=== PATIENT | female | born 1985 | race Caucasian/White ===

== ENCOUNTER 2017-06-12 19:25 | Inpatient (IN) | payer BC ==
[2017-06-12] MEDS ORDERED: Lactated Ringers 1,000 ML IV ONE (19:45)
[2017-06-12] MEDS ORDERED: CLINDAMYCIN PHOSPHATE IV ONE (19:49)
[2017-06-12] MEDS ORDERED: Lidocaine 1% 20 ML MDV INJECT ONE (20:00)
[2017-06-12] MEDS ORDERED: Oxytocin 10 Units/1 ML SDV IV ONE (20:00)
[2017-06-12] MEDS: Ibuprofen 600 MG Tab PO PRN (21:00)
--- NOTE | 2017-06-12 21:55 | PCM.LDHP ---
L&D History of Present Illness - General Date of Service: 06/12/17 Admit Problem/Dx: Patient Status Order with Admit Dx/Problem 06/12/17 19:10 Admission Status [Patient Status] [ADT] Routine Admission Diagnosis/Problem Admission Diagnosis/Problem Normal in multigravida Source of Information: Patient History Limitations: Reports: No Limitations - History of Present Illness Introduction:: 32 you at post term with uterine contractions ,barely 45 min after her water broke. She is Group B strep + Timing/Duration: Reports: seconds:, minutes: (5), sudden onset Location, : Reports: Abdomen Quality: Reports: Stabbing Severity: Severe - Related Data Allergies/Adverse Reactions: Allergies Allergy/AdvReac Type Severity Reaction Status Date / Time Penicillins Allergy Hives Verified 07/13/13 04:18 Sulfa (Sulfonamide Allergy Swelling Verified 07/13/13 04:18 Antibiotics) Home Medications: Home Meds Norgestimate-Ethinyl Estradiol [Tri-Previfem Tablet] 1 tab PO DAILY 07/13/13 [ History] Omeprazole [Omeprazole] 20 mg PO DAILY 07/13/13 [History] Past Medical History - Past Health History Medical/Surgical History: Denies Medical/Surgical History Social & Family History - Alcohol Use Days Per Week of Alcohol Use: 0 - Recreational Drug Use Recreational Drug Use: No H&P Review of Systems - Review of Systems: Review Of Systems: ROS reveals no pertinent complaints other than HPI. L&D Exam - Exam Exam: See Below - OB Specific Contraction Intensity: Moderate Movement: Active Heart Tones: Present Heart Rate (FHR) Variability: Moderate (6-25 bmp) Presentation: Left Occiput Anterior (SARAHI) - Navarro Score Navarro Score Effacement: >80% Navarro Score Dilation: > 5 cm - Exam General: Alert, Oriented HEENT: PERRLA, Conjunctiva Clear, EACs Clear, EOMI, Hearing Intact, Mucosa Moist & Sharon, Nares Patent, Normal Nasal Septum, Posterior Pharynx Clear, TMs Clear Neck: Supple, Trachea Midline Lungs: Clear to Auscultation, Normal Respiratory Effort Cardiovascular: Regular Rate, Regular Rhythm GI/Abdominal Exam: Normal Bowel Sounds, Soft, Non-Tender, No Organomegaly, No Distention, No Abnormal Bruit, No Mass, Pelvis Stable Rectal Exam: Normal Exam, Normal Rectal Tone Genitourinary: Normal external exam, Normal bimanual exam, Normal speculum exam Back Exam: Normal Inspection, Full Range of Motion Extremities: Normal Inspection, Normal Range of Motion, Non-Tender, No Pedal Edema, Normal Capillary Refill Skin: Warm, Dry, Intact Neurological: Cranial Nerves Intact, Reflexes Equal Bilateral Psychiatric: Alert, Normal Affect, Normal Mood - Problem List (1) Term SNOMED Code(s): 94176038 ICD Code: Z34.80 - ENCOUNTER FOR SUPRVSN OF NORMAL , UNSP TRIMESTER Status: Acute Current Visit: Yes (2) PROM (premature rupture of membranes) SNOMED Code(s): 47000739 ICD Code: O42.90 - RENETTA ROM, 7TH0 BETW RUPT & ONST LABR, UNSP WEEKS OF GEST Status: Acute Current Visit: Yes Qualifiers: PROM onset of labor timing: onset of labor within 24 hours of rupture (3) Group B streptococcal carriage complicating SNOMED Code(s): 901407818732404 ICD Code: O99.820 - STREPTOCOCCUS B CARRIER STATE COMPLICATING Status: Acute Current Visit: Yes Problem List Initiated/Reviewed/Updated: Yes Orders Last 24hrs: Active Orders 24 hr Category Date Time Status Admission Status [Patient Status] [ADT] Routine ADT 06/12/17 19:10 Active Vital Signs [RC] PFP Care 06/12/17 21:06 Active Regular Diet [DIET] Diet 06/12/17 Breakfast Active CBC WITH AUTO DIFF [HEME] AM Lab 06/13/17 05:11 Ordered Ibuprofen [Motrin] Med 06/12/17 21:06 Active 600 mg PO Q4H PRN Ice Therapy [OM.PC] Per Unit Routine Oth 06/12/17 21:06 Ordered Perineal Care [OM.PC] Per Unit Routine Oth 06/12/17 21:06 Ordered Sitz Bath [OM.PC] Per Unit Routine Oth 06/12/17 21:06 Ordered Resuscitation Status Routine Resus Stat 06/12/17 21:06 Ordered Medication Orders Ibuprofen (Motrin) 600 mg PO Q4H PRN PRN Reason: Pain Assessment/Plan Comment:: Admit to L & D. Start Clindamycin for IAP. Observe.
--- NOTE | 2017-06-13 00:11 | DEL ---
DATE OF DELIVERY: 06/12/2017 PREOPERATIVE DIAGNOSES: 1. Premature rupture of membranes. 2. Group B strep status. POSTOPERATIVE DIAGNOSES: 1. Spontaneous vaginal delivery. 2. Second-degree perineal tear. BRIEF HISTORY AND HOSPITAL COURSE: This is a 32-year-old female who came in after premature rupture of membranes and onset of labor. She is group B positive and was due to be induced next week on Friday. She belongs to Dr. Nielsen. I was called in his absence. I attempted to call him, but he did not answer. I came into the room and confirmed that the patient was indeed ruptured and was complete with exception of a lip which I was able to push through. She started pushing and before that we had given 600 mg of IV clindamycin. She delivered around 2032 hours, live male with score of 9 and 9. There was cord delay and then clamped and cut. The placenta delivered shortly afterwards. It looked green. It was three vessel and intact. She had sustained a second-degree midline tear that was repaired expeditiously with 4-0 Vicryl. I gave her 10 units of intravenous oxytocin. Estimated blood loss 300 mL. The patient tolerated the procedure very well. She will be admitted to the Labor and Delivery for routine care. /[id number] PRESTON/KAREN
[2017-06-13] MEDS: Ibuprofen 600 MG Tab PO PRN ×3 (02:20→17:53)
--- NOTE | 2017-06-13 09:58 | PN ---
DATE SEEN: 06/13/2017 REASON FOR VISIT: care. HISTORY OF PRESENT ILLNESS: This is a 32-year-old, G2, P1, who delivered last night, 6 days post dates. This morning, she complained of pelvic pain and bleeding continues, but no fever has been reported. Denies any dysuria or frequency. No chest pain. No shortness of breath. PAST MEDICAL HISTORY: Anemia in . ALLERGIES: Penicillin and sulfa. PHYSICAL EXAMINATION: VITAL SIGNS: Blood pressure is normal. Pulse is normal. Temp 98.3. Oxygenation is normal on room air. Respiratory rate 16. ENT: Negative. CHEST: Clear. CARDIOVASCULAR: Normal. ABDOMEN: Soft and tender in the pelvic area with a firm uterus that is extremely tender. EXTREMITIES: No edema. LABORATORY DATA: White cell count was 14.1, hemoglobin 9.3 with a hematocrit of 29.0. IMPRESSION: 1. First day . 2. GBS colonization affecting . 3. Anemia due to blood loss. PLAN: My plan is to repeat a CBC, observe vital signs, and pain control with ibuprofen. I have thoroughly considered possibility of endometritis, but given no fever, no other symptoms or vital signs to suggest serious infection, the only sign she has is abdominal tenderness. I will wait and repeat a CBC in the morning. However, if she develops any fever or other symptoms, I am willing to start clindamycin and gentamicin right away. I did order UA to make she has no urinary tract infection. I restarted her home vitamins. /[id number] PRESTON/KAREN
[2017-06-13] MEDS: Prenatal Multivitamin with Calcium/Folic Acid/Fe Fumarate Cap PO SCH (11:20)
[2017-06-13] MEDS ORDERED: Acetaminophen/HYDROcodone 325-5 MG Tab PO PRN (11:22)
[2017-06-14] MEDS: Prenatal Multivitamin with Calcium/Folic Acid/Fe Fumarate Cap PO SCH (09:21)
--- NOTE | 2017-06-14 09:32 | PCM.PNPP ---
- General Info Date of Service: 06/14/17 Admission Dx/Problem (Free Text): Patient Status Order with Admit Dx/Problem 06/12/17 19:10 Admission Status [Patient Status] [ADT] Routine Admission Diagnosis/Problem Admission Diagnosis/Problem Normal in multigravida Functional Status: Reports: Pain Controlled, Tolerating Diet - Review of Systems General: Reports: No Symptoms HEENT: Reports: No Symptoms Pulmonary: Reports: No Symptoms Cardiovascular: Reports: No Symptoms Gastrointestinal: Reports: No Symptoms Genitourinary: Reports: No Symptoms Musculoskeletal: Reports: No Symptoms Skin: Reports: No Symptoms Neurological: Reports: No Symptoms Psychiatric: Reports: No Symptoms - General Info Date of Service: 06/14/17 - Patient Data Vital Signs - Most Recent: Last Vital Signs Temp 97.9 F 06/13/17 23:20 Pulse 86 06/13/17 23:20 Resp 18 06/13/17 23:20 BP 98/60 06/13/17 23:20 Pulse Ox 100 06/13/17 23:20 Weight - Most Recent: 63.503 kg Lab Results - Last 24 Hours: Laboratory Results - last 24 hr 06/13/17 06/13/17 06/14/17 Range/Units 10:50 12:40 06:38 WBC 12.4 H 9.3 (4.5-12.0) X10-3/uL RBC 3.79 3.55 (3.23-5.20) x10(6)uL Hgb 9.5 L 8.9 L (11.5-15.5) g/dL Hct 29.1 L 27.6 L (30.0-51.3) % MCV 76.7 L 77.9 L (80-96) fL MCH 25.1 L 25.0 L (27.7-33.6) pg MCHC 32.8 32.1 L (32.2-35.4) g/dL RDW 15.5 15.9 H (11.5-15.5) % Plt Count 292 292 (125-369) X10(3)uL MPV 8.4 8.7 (7.4-10.4) fL Add Manual Diff Yes Yes Neutrophils % (Manual) 79 72 (46-82) % Band Neutrophils % 1 (0-6) % Lymphocytes % (Manual) 15 26 (13-37) % Monocytes % (Manual) 5 2 L (4-12) % Microcytosis Few Few Urine Color Yellow (YELLOW) Urine Appearance Clear (CLEAR) Urine pH 7.0 H (5.0-6.5) Ur Specific [place] 1.010 (1.010-1.025) Urine Protein Negative (NEGATIVE) mg/dL Urine Glucose (UA) Normal (NEGATIVE) mg/dL Urine Ketones Negative (NEGATIVE) mg/dL Urine Occult Blood Large H (NEGATIVE) Urine Nitrite Negative (NEGATIVE) Urine Bilirubin Negative (NEGATIVE) Urine Urobilinogen Normal (NEGATIVE) mg/dL Ur Leukocyte Esterase Negative (NEGATIVE) Urine RBC >100 H (0) Urine WBC 0-5 (0) Ur Squamous Epith Cells Moderate H (NS,R,O) Urine Bacteria Few H (NS) Med Orders - Current: Current Medications Hydrocodone Bitart/Acetaminophen ([place] 325-5 Mg) 1 tab PO Q4H PRN PRN Reason: Pain Last Admin: 06/13/17 11:38 Dose: 1 tab Ibuprofen (Motrin) 600 mg PO Q4H PRN PRN Reason: Pain Last Admin: 06/13/17 17:53 Dose: 600 mg Multivit/Folic Acid/Iron (-U) 1 each PO DAILY JAVIER Last Admin: 06/14/17 09:21 Dose: 1 each Discontinued Medications Clindamycin Phosphate (Cleocin) Confirm Administered Dose 600 mg IV .STK-MED ONE Stop: 06/12/17 19:50 Last Admin: 06/12/17 19:56 Dose: Not Given Lactated Ringer's (Ringers, Lactated) 1,000 mls @ 999 mls/hr IV BOLUS ONE Stop: 06/12/17 20:45 Last Admin: 06/12/17 23:01 Dose: 999 mls/hr Clindamycin Phosphate 600 mg/ (Sodium Chloride) 54 mls @ 150 mls/hr IV ONETIME ONE Stop: 06/12/17 20:06 Last Admin: 06/12/17 20:00 Dose: 150 mls/hr Lidocaine HCl (Xylocaine 1%) 20 ml INJECT ONETIME ONE Stop: 06/12/17 20:01 Last Admin: 06/12/17 20:40 Dose: 20 ml Oxytocin (Pitocin) 10 unit IV ONETIME ONE Stop: 06/12/17 20:01 Last Admin: 06/12/17 20:40 Dose: 10 unit - Interaction Infant Disposition, : [place] to Nursery Feeding: Bottle Fed Support Person: - Recovery Exam Fundal Tone: Firm Fundal Level: 1 Fingerbreadths Below Umbilicus Fundal Placement: Midline Lochia Amount: Small Lochia Color: Rubra/Red Perineum Description: Redness, Ecchymotic Episiotomy/Laceration: Approximated Bladder Status: Voiding Urinary Elimination: Voided - Exam General: Alert, Oriented HEENT: Pupils Equal Neck: Supple Lungs: Clear to Auscultation, Normal Respiratory Effort Cardiovascular: Regular Rate, Regular Rhythm GI/Abdominal Exam: Normal Bowel Sounds, Soft, Non-Tender, No Organomegaly, No Distention, No Abnormal Bruit, No Mass, Pelvis Stable Extremities: Normal Inspection, Normal Range of Motion, Non-Tender, No Pedal Edema, Normal Capillary Refill Skin: Warm, Dry, Intact Wound/Incisions: Healing Well Neurological: No New Focal Deficit Psy/Mental Status: Alert, Normal Affect, Normal Mood - Problem List & Annotations (1) Term SNOMED Code(s): 12363873 Code(s): Z34.80 - ENCOUNTER FOR SUPRVSN OF NORMAL , UNSP TRIMESTER Status: Acute Current Visit: Yes (2) PROM (premature rupture of membranes) SNOMED Code(s): 07562723 Code(s): O42.90 - RENETTA ROM, 7TH0 BETW RUPT & ONST LABR, UNSP WEEKS OF GEST Status: Acute Current Visit: Yes Qualifiers: PROM onset of labor timing: onset of labor within 24 hours of rupture (3) Group B streptococcal carriage complicating SNOMED Code(s): 757975331703887 Code(s): O99.820 - STREPTOCOCCUS B CARRIER STATE COMPLICATING Status: Acute Current Visit: Yes (4) Iron deficiency anemia SNOMED Code(s): 01667472 Code(s): D50.9 - IRON DEFICIENCY ANEMIA, UNSPECIFIED Status: Acute Current Visit: Yes - Problem List Review Problem List Initiated/Reviewed/Updated: Yes - My Orders Last 24 Hours: My Active Orders 06/13/17 10:30 Vit/FA/Fe Fumarate [-U] 1 each PO DAILY 06/13/17 11:22 Acetaminophen/HYDROcodone [[place] 325-5 MG] 1 tab PO Q4H PRN - Plan Plan:: Doing well this morning. No symptoms or anemia. Noel tart iron replacment and send home today.
[2017-06-14 09:38] VITALS: BP 102/70
--- NOTE | 2017-06-15 02:29 | DISCH ---
DISCHARGE DATE: 06/14/2017 REASON FOR ADMISSION: 1. Premature rupture of membranes. 2. Group B strep. 3. Term . DISCHARGE DIAGNOSES: 1. Spontaneous vaginal delivery. 2. Anemia of iron deficiency and blood loss. 3. Second-degree perineal tear. PROCEDURES: Spontaneous vaginal delivery. Please see delivery note. BRIEF HISTORY: This is a 32-year-old female, G2, P1, who presented with premature rupture of membranes, delivered vaginally shortly afterwards with inadequate IAP (intrapartum antibiotic prophylaxis). The product of the delivery was a live male that has done very well. She was noted to have low hemoglobin of 9.5 after delivery and at discharge 8.9, but did not have any symptoms. She did have abdominal pain initially that improved significantly the next day, no fever throughout. She was discharged home on iron replacement and vitamins. FOLLOWUP: Followup in 6 weeks. I spent more than 35 minutes in the discharge of the patient. /[id number] PRESTON/KAREN
== END 2017-06-14 13:05 | disposition home or self-care (01) | DRG 560 ==
LOC: FB.OB 19:25
PROVIDERS: ADMIT Family Medicine; ATTEND Family Medicine
PROC: 10E0XZZ Delivery of Products of Conception, External Approach (ICD-10-PCS; principal; 2017-06-12)
PROC: 0KQM0ZZ Repair Perineum Muscle, Open Approach (ICD-10-PCS; 2017-06-12)
DX: O48.0 Post-term pregnancy (principal); O99.02 Anemia complicating childbirth; O70.1 Second degree perineal laceration during delivery; O99.824 Streptococcus B carrier state complicating childbirth; D50.9 Iron deficiency anemia, unspecified; Z3A.40 40 weeks gestation of pregnancy; Z37.0 Single live birth
CPT/HCPCS: 36415; 81001; 85025; 88307; A9270-GY; J2590; J7050; J7120; S0077